=== PATIENT | female | born 2000 | race Native Hawaiian/Other Pacific Islander ===

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

== ENCOUNTER 2021-06-29 15:34 | Outpatient (CLI) | payer BC | END 2021-06-29 19:21 | disposition home or self-care (01) | LOC: RAD 15:34 | PROVIDERS: ATTEND Nurse Practitioner Family | DX: R10.84 Generalized abdominal pain (principal); R11.2 Nausea with vomiting, unspecified; K59.00 Constipation, unspecified ==

== ENCOUNTER 2023-07-17 07:45 | Outpatient (CLI) | payer BC | END 2023-07-17 19:05 | disposition home or self-care (01) | LOC: US 07:45 | PROVIDERS: ATTEND Physician Assistant | DX: R10.13 Epigastric pain (principal) ==